=== PATIENT | male | born 1955 | race Caucasian/White ===

== ENCOUNTER 2016-08-20 12:37 | Emergency (ER) | payer OTHER ==
[2016-08-20] MEDS ORDERED: IBUPROFEN 600 MG TABLET (FP) PO ONE ×2 (12:50→13:06)
--- NOTE | 2016-08-20 12:51 | PDOC ---
[id number] CHEST PAIN Time Seen by Provider: 08/20/16 12:42 History Source: Patient Exam Limitations: No Limitations - History of Present Illness Initial Comments: 08/20/16 12:54 60-year-old male presents the ED with complaints of generalized chest pain with nonproductive cough since yesterday associated with pain worsened with deep inspiration and movement. patient describes the pain as an aching sensation that radiates to his upper abdominal region. Patient with history of pneumonia, back surgery, obesity, DVT, hypertension, dyslipidemia, BPH, depression, schizophrenia, diabetes and thyroid disease. Patient denies fever, chills, difficulty breathing, weakness, headache, sore throat, vomiting, or abdominal pain. Presenting Symptoms: Chest Pain Timing/Duration: reports: constant Severity/Quality: reports: aching Location: reports: substernal Chest Pain Radiation: reports: epigastric Activities at Onset: reports: none Modifying Factors: improves with: coughing Nitro Today/Relief: Yes: no nitro taken today Beta Juan F given by EMS (Core Measure): No Beta Juan F taken at Home (Core Measure): No Beta Juan F indicated at this time? (Core Measure): No Associated Symptoms: Yes: Cough, Chest Pain/pressure Past History - Past Medical History Allergies/Adverse Reactions: Allergies Allergy/AdvReac Type Severity Reaction Status Date / Time penicillamine Allergy Unknown Verified 08/20/16 12:43 Penicillins Allergy Unknown Verified 08/20/16 12:43 Home Medications: Ambulatory Orders Acetaminophen 650 mg PO Q6H PRN 08/20/16 Albuterol 2.5/Ipratropium 0.5 [Duoneb -] 1 neb IH QID 08/20/16 Apixaban [Eliquis] 5 mg PO BID 08/20/16 Aspirin [ASA -] 81 mg PO DAILY 08/20/16 Carbamazepine Xr [Tegretol Xr -] 200 mg PO BID 08/20/16 Clonazepam [Klonopin] 1 mg PO Q8H 08/20/16 Diphenhydramine HCl [Benadryl Capsule -] 50 mg PO BID PRN 08/20/16 Docusate Sodium [Colace -] 100 mg PO BID 08/20/16 Duloxetine HCl [Cymbalta] 60 mg PO DAILY 08/20/16 Empagliflozin [Jardiance] 25 mg PO DAILY 08/20/16 Fenofibrate 160 mg PO DAILY 08/20/16 Finasteride [Proscar] 5 mg PO DAILY 08/20/16 Fluticasone Propionate [24 Hour Allergy Relief] 15.8 ml NS BID 08/20/16 Gabapentin [Neurontin] 400 mg PO TID 08/20/16 Guaifenesin Dm [Robitussin Dm] 10 ml PO TID 08/20/16 Hydrocodone/Acetaminophen [Vicodin 5-300 mg Tablet] 1 each PO BID PRN 08/20/16 Hydrocortisone 2.5% Topical Cr [Anusol 2.5% Hc Cream -] 1 applic RC DAILY Hydrocortisone 2.5% Topical Cr [Anusol 2.5% Hc Cream -] 1 applic TP DAILY Hypromellose 0.5% Opth Soln [Artificial Tears] 1 drop OD QID 08/20/16 Insulin (Levemir) [Levemir Vial] 60 unit SQ DAILY 08/20/16 Insulin Lispro [Humalog] 6 unit SQ TID 08/20/16 Lactulose 10 gm PO DAILY 08/20/16 Latanoprost 0.005% Eye Drops [Xalatan 0.005% Eye Drops -] 1 drop OD HS 08/20/16 Levothyroxine [Synthroid -] 25 mcg PO DAILY 08/20/16 Lurasidone HCl [Latuda] 40 mg PO DAILY 08/20/16 Mag Hydrox/Al Hydrox/Simeth [Amparo-Lanta Liquid] 355 ml PO DAILY 08/20/16 Magnesium Hydrox 2400MG/30Ml [Milk of Magnesia -] 30 ml PO PRN PRN 08/20/16 Menthol [Icy Hot] 1 each TP Q12H 08/20/16 Metoprolol Succinate [Toprol Xl] 50 mg PO DAILY 08/20/16 Morphine *Sr* [Ms Contin -] 15 mg PO BID 08/20/16 Multivitamin [Poly-Vitamin] 1 each PO DAILY 08/20/16 Na Phos,M-B/Na Phos,Di-Ba [Fleet Enema] 133 ml RC PRN PRN 08/20/16 Nitroglycerin 0.4 mg SL PRN PRN 08/20/16 Nitroglycerin Patch [Nitro-Dur] 0.2 mg TD PRN PRN 08/20/16 Parab/Cet Alc/Stryl Alc/Pg/Sls [Cetaphil Gentle Skin Cleanser] 473 ml TP DAILY 08/20/16 Ranitidine [Zantac -] 150 mg PO DAILY 08/20/16 Salicylic Acid [Selsun Blue Naturals] 325 ml TP DAILY 08/20/16 Salmeterol/Fluticasone [Advair 100Mcg/50Mcg -] 1 inh PO BID 08/20/16 Sennosides [Senokot] 8.6 mg PO HS 08/20/16 Sodium Chloride [Saline Nasal Mist] 126 ml NS DAILY 08/20/16 Tamsulosin HCl [Flomax] 0.4 mg PO DAILY 08/20/16 Asthma: Yes Cancer: No Cardiac Disorders: Yes CHF: Yes Diabetes: Yes GI Disorders: Yes (constipation) Disorders: (INCONTINENT) HTN: Yes Hypercholesterolemia: Yes Liver Disease: No Psychiatric Problems: Yes (SCHIZOAFFECTIVE DISORDER,DEPRESSIVE DISRORDER) Suicide Attempt (Hx): No Thyroid Disease: Yes (Hypo) - Surgical History Abdominal Surgery: Yes (HERNIA REPAIR) GI Surgery: Yes (HERNIA REPAIR) Neurologic Surgery: Yes (HERNEATED DISC SURGERY RECENT) Orthopedic Surgery: Yes (Right foot hammer toe repair) - Immunization History Immunization Up to Date: Yes - Psycho/Social/Smoking Cessation Hx Anxiety: No Suicidal Ideation: No Smoking History: Never smoked Have you smoked in the past 12 months: No Number of Cigarettes Smoked Daily: 0 Hx Alcohol Use: No Drug/Substance Use Hx: No Substance Use Type: None Hx Substance Use Treatment: No Patient Lives Alone: No Lives with/in: shelter Review of Systems - Review of Systems Able to Perform ROS?: Yes Constitutional: No: Symptoms Reported HEENTM: No: Symptoms Reported Respiratory: Yes: Symptoms reported, Cough Cardiac (ROS): Yes: Symptoms Reported, Chest Pain ABD/GI: No: Symptoms Reported : No: Symptoms Reported Musculoskeletal: No: Symptoms Reported Integumentary: No: Symptoms Reported Neurological: No: Symptoms reported *Physical Exam - Vital Signs Last Vital Signs Temp Pulse Resp BP Pulse Ox 97.9 F 83 18 136/87 95 08/20/16 19:01 08/20/16 19:01 08/20/16 19:01 08/20/16 19:01 08/20/16 19:01 - Physical Exam General Appearance: Yes: Nourished, Appropriately Dressed. No: Apparent Distress HEENT: positive: EOMI, LETA, TMs Normal, Pharynx Normal (dry). negative: Pale Conjunctivae Neck: positive: Supple Respiratory/Chest: positive: Chest Tender (generalized anterior and bilateral oblique and epigastric tenderness), Lungs Clear, Normal Breath Sounds. negative : Respiratory Distress, Accessory Muscle Use Cardiovascular: positive: Regular Rhythm, Regular Rate. negative: Murmur Gastrointestinal/Abdominal: positive: Soft, Tenderness ( upper abdominal) Musculoskeletal: negative: CVA Tenderness Extremity: positive: Normal Capillary Refill, Pedal Edema (trace bilateral) Integumentary: positive: Normal Color, Warm, Moist Neurologic: positive: Motor Strength 5/5. negative: Normal Mood/Affect (flat affect, ), Sensory Deficit Heart Score/ECG Review - History History: Slightly suspicious - Electrocardiogram EKG: Normal - Age Age: 45-65 - Risk Factors Risk Factors Heart Score: Yes Hx Hypercholesterolemia, Yes Hx Hypertension, Yes Hx Obesity Based on the list above the patient has:: >/=3 risk factors or Hx atherosclerotic disease - Troponin Troponin: </= normal limit - Score Heart Score - Total: 3 - ECG Intrepretation Rhythm: Regular Rhythm (normal sinus rhythm at 64 with PAC) ED Treatment Course - LABORATORY CBC & Chemistry Diagram: 08/20/16 13:15 08/20/16 13:16 - ADDITIONAL ORDERS Additional order review: 08/20/16 13:16 Blood Culture - Preliminary Blood - Peripheral Venous NO GROWTH OBTAINED AFTER 72 HOURS, INCUBATION TO CONTINUE FOR 2 DAYS. 08/20/16 13:16 Blood Culture - Preliminary Blood - Peripheral Venous NO GROWTH OBTAINED AFTER 72 HOURS, INCUBATION TO CONTINUE FOR 2 DAYS. 08/20/16 13:15 RBC 4.68 MCV 85.7 MCHC 33.6 RDW 13.8 MPV 10.2 D Neutrophils % 74.6 D Lymphocytes % 16.0 D Monocytes % 7.7 Eosinophils % 1.2 D Basophils % 0.5 - RADIOLOGY Radiology Studies Ordered: Category Date Time Status CHEST X-RAY PORTABLE* [RAD] Stat Radiology 08/20/16 12:50 Completed - Medications Given in the ED: ED Medications Discontinued Medications Generic Name Dose Route Start Last Admin Trade Name Freq PRN Reason Stop Dose Admin Ibuprofen 600 mg 08/20/16 12:50 08/20/16 13:13 Motrin - PO 08/20/16 12:51 600 mg ONCE ONE Administration Medical Decision Making - Medical Decision Making 08/20/16 13:03 Patient will call for the past 2 days now associated with anterior chest pain which he describes an aching sensation worsened with movement and deep breathing. Patient has multiple comorbidities so will have cardiac workup along with chest x-ray to rule out pneumonia. 08/20/16 13:03 Patient currently on Eliquis secondary to DVT diagnosed last year. 08/20/16 13:16 08/20/16 13:55 Laboratory Tests 08/20/16 08/20/16 13:15 13:15 WBC 8.2 D Hgb 13.5 D Hct 40.1 D Plt Count 205 D INR Pending chest x-ray negative 08/20/16 14:21 Laboratory Tests 08/20/16 13:16 Sodium 139 Potassium 4.2 Chloride 102 Carbon Dioxide 24 Anion Gap 13 BUN 24 H Creatinine 1.2 D Creat Clearance w eGFR > 60 Random Glucose 136 H Calcium 9.6 Total Bilirubin 0.3 D AST 16 D ALT 25 D Alkaline Phosphatase 85 D Creatine Kinase 65 Troponin I < 0.02 Total Protein 6.9 Albumin 3.6 Lipase 151 08/20/16 14:21 Patient will have second troponin EKG done at 5 PM. If negative patient may return to shelter facility. Will contact Dr. Saida Ramirez/Elsy Mercado to update them on patient's ER visit 08/20/16 14:56 Laboratory Tests 08/20/16 13:16 Troponin I < 0.02 B-Natriuretic Peptide 81.51 08/20/16 15:[address] Mercado who states patient may return to shelter if troponin and EKG are negative. He states patient has had cardiac workups in the past recently. *DC/Admit/Observation/Transfer Diagnosis at time of Disposition: Chest pain - Discharge Dispostion Disposition: [facility] Condition at time of disposition: Stable - Referrals Referrals: Aaron Mercado MD [Primary Care Provider] - - Patient Instructions Printed Discharge Instructions: DI for Atypical Chest Pain Additional Instructions: Your Discharge Instructions: You must call primary care physician within 24 hours to arrange follow-up. Return to the Emergency Department with any new, persistent or worsening symptoms, for fever, chills, SOB, dizziness or any other concerning changes that may occur.
[2016-08-20 13:00] VITALS: BMI 38.6
[2016-08-20 13:28] LABS: BASOPHIL 0.5 % (0-2.0); EOSINOPHIL 1.2 % (0-4.5); MCH 28.8 pg (25.7-33.7); MCHC 33.6 g/dl (32.0-35.9); MEAN CELL VOLUME 85.7 fl (80-96); MEAN PLT VOLUME 10.2 fl (7.5-11.1); NEUTROPHILS 74.6 % (42.8-82.8); PLATELET COUNT 205 K/MM3 (134-434); RDW 13.8 % (11.9-15.9); WHITE BLOOD COUNT 8.2 K/mm3 (4.0-10.0)
[2016-08-20 14:02] LABS: INR 1.52 (0.82-1.09); PROTHROMBIN TIME (PATIENT) 16.9 SEC (9.98-11.88)
[2016-08-20 14:03] LABS: ALBUMIN 3.6 g/dl (3.4-5.0); ANION GAP 13 (8-16); BILIRUBIN,TOTAL 0.3 mg/dL (0.2-1.0); CALCIUM 9.6 mg/dL (8.5-10.1); CO2 24 mmol/L (21-32); COCKROFT - GAULT 92.13; CREATININE 1.2 mg/dL (0.7-1.3); GLUCOSE,RANDOM 136 mg/dL (74-106); SGOT/AST 16 U/L (15-37); SGPT/ALT 25 U/L (12-78); TOT PROT 6.9 g/dl (6.4-8.2)
[2016-08-20 14:06] LABS: ALK PHOS 85 U/L (45-117)
[2016-08-20 14:19] LABS: TROPONIN I < 0.02 ng/ml (0.00-0.05)
--- NOTE | 2016-08-20 17:37 | PDOC ---
*Physical Exam - Vital Signs Last Vital Signs Temp Pulse Resp BP Pulse Ox 98.3 F 66 18 147/88 96 08/20/16 12:41 08/20/16 13:16 08/20/16 12:41 08/20/16 12:41 08/20/16 13:16 ED Treatment Course - LABORATORY CBC & Chemistry Diagram: 08/20/16 13:15 08/20/16 13:16 - ADDITIONAL ORDERS Additional order review: Laboratory Results 08/20/16 08/20/16 13:16 13:15 INR 1.52 H D Sodium 139 Potassium 4.2 Chloride 102 Carbon Dioxide 24 Anion Gap 13 BUN 24 H Creatinine 1.2 D Creat Clearance w eGFR > 60 Random Glucose 136 H Calcium 9.6 Total Bilirubin 0.3 D AST 16 D ALT 25 D Alkaline Phosphatase 85 D Creatine Kinase 65 Troponin I < 0.02 B-Natriuretic Peptide 81.51 Total Protein 6.9 Albumin 3.6 Lipase 151 08/20/16 13:15 RBC 4.68 MCV 85.7 MCHC 33.6 RDW 13.8 MPV 10.2 D Neutrophils % 74.6 D Lymphocytes % 16.0 D Monocytes % 7.7 Eosinophils % 1.2 D Basophils % 0.5 - Medications Given in the ED: ED Medications Discontinued Medications Generic Name Dose Route Start Last Admin Trade Name Freq PRN Reason Stop Dose Admin Ibuprofen 600 mg 08/20/16 12:50 08/20/16 13:13 Motrin - PO 08/20/16 12:51 600 mg ONCE ONE Administration Medical Decision Making - Medical Decision Making 08/20/16 17:36 endorsed to follow repeat cardiac enzymes and disposition. 08/20/16 17:45 Patient seen and evaluated states he does not feel good. EKG NR rate 71, NAD, (-) ST-T wave changes unchanged from prior. PLAN is to return the patient to the [facility] if trop x 2 is neg as per signout and d/ w with the pmd. trop neg I discussed the physical exam findings, ancillary test results and final diagnoses with the patient. I answered all of the patient's questions. The patient was satisfied with the care received and felt comfortable with the discharge plan and treatment plan. The Patient agrees to follow up with the primary care physician within 24-[address] Beach about 08/20/16 19:03 *DC/Admit/Observation/Transfer Diagnosis at time of Disposition: Chest pain Qualifiers: Chest pain type: unspecified Qualified Code(s): R07.9 - Chest pain, unspecified - Discharge Dispostion Disposition: HOME Condition at time of disposition: Stable - Patient Instructions Printed Discharge Instructions: DI for Atypical Chest Pain Additional Instructions: Your Discharge Instructions: You must call primary care physician within 24 hours to arrange follow-up. Return to the Emergency Department with any new, persistent or worsening symptoms, for fever, chills, SOB, dizziness or any other concerning changes that may occur.
[2016-08-20 18:55] LABS: TROPONIN I < 0.02 ng/ml (0.00-0.05)
[2016-08-20 19:04] VITALS: BP 136/87; PULSE 83; TEMP 97.9
--- NOTE | 2016-08-21 08:59 | EKG ---
Test Reason : Blood Pressure : / mmHG Vent. Rate : 064 BPM Atrial Rate : 064 BPM P-R Int : 168 ms QRS Dur : 092 ms QT Int : 408 ms P-R-T Axes : 042 042 055 degrees QTc Int : 420 ms SINUS RHYTHM WITH PREMATURE ATRIAL COMPLEXES WITH ABERRANT CONDUCTION OTHERWISE NORMAL ECG WHEN COMPARED WITH ECG OF 06-DEC-2015 21:44, ABERRANT CONDUCTION IS NOW PRESENT Confirmed by RYAN OLIVER, NERY ([id number]) on 08/21/2016 8:59:23 AM Referred By: Confirmed By:NERY DAVIS MD
--- NOTE | 2016-08-21 09:08 | EKG ---
Test Reason : Blood Pressure : / mmHG Vent. Rate : 071 BPM Atrial Rate : 071 BPM P-R Int : 168 ms QRS Dur : 092 ms QT Int : 402 ms P-R-T Axes : 049 044 057 degrees QTc Int : 436 ms NORMAL SINUS RHYTHM NORMAL ECG WHEN COMPARED WITH ECG OF 20-AUG-2016 12:57, ABERRANT CONDUCTION IS NO LONGER PRESENT Confirmed by NERY DAVIS MD ([id number]) on 08/21/2016 9:08:14 AM Referred By: Confirmed By:NERY DAVIS MD
== END 2016-08-20 20:28 ==
LOC: JER 12:37
DX: R07.89 Other chest pain (principal); I10 Essential (primary) hypertension; E78.5 Hyperlipidemia, unspecified; F32.9 Major depressive disorder, single episode, unspecified; F20.89 Other schizophrenia; Z79.4 Long term (current) use of insulin; E03.9 Hypothyroidism, unspecified; J45.909 Unspecified asthma, uncomplicated; I50.9 Heart failure, unspecified; K59.09 Other constipation; Z86.718 Personal history of other venous thrombosis and embolism; Z79.01 Long term (current) use of anticoagulants
CPT/HCPCS: 36415; 71010-TC; 80053; 82550; 83690; 83880; 84484; 85025; 85610; 87040; 93005; 93010; 99285-25

== ENCOUNTER 2016-12-31 01:07 | Emergency (ER) | payer OTHER ==
--- NOTE | 2016-12-31 01:25 | PDOC ---
History of Present Illness - General History Source: Patient Exam Limitations: No Limitations <Monroe Cortez - Last Filed: 12/31/16 01:41> - General History Source: Patient Exam Limitations: No Limitations - History of Present Illness Beta Juan F given by EMS (Core Measure): No Beta Juan F taken at Home (Core Measure): No <Frances Guerrero I - Last Filed: 12/31/16 05:30> - General Stated Complaint: CHEST PAIN Time Seen by Provider: 12/31/16 01:19 - History of Present Illness Initial Comments: 12/31/16 01:38 HISTORY OF PRESENT ILLNESS The patient is a morbidly obese 61 year old male with a significant PMH of asthma, HTN, angina, and chronic back pain who presents to the emergency department with chest pain beginning approximately 2 days ago. The patient describes the chest pain as continuous with no radiation, and it is aggravated by movement or deep inspiration. The patient reports associated SOB with his symptoms. The patient notes that the chest pain is distinct from his angina pain in that it hurts more when he moves. The patient also reports 14 weeks of diffuse abdominal pain, which he saw his PCP for. However, he cannot remember the cause for the abdominal pain or what his PCPs course was. The patient denies headache and dizziness. Denies fever, chills, nausea, vomit, diarrhea and constipation. Denies dysuria, frequency, urgency and hematuria. PAST MEDICAL HISTORY: Asthma, HTN, Angina, Chronic back pain. PAST SURGICAL HISTORY: Recent herniated disc surgery. Abdominal hernia repair. Right foot hammer toe repair. FAMILY HISTORY: No pertinent history reported. SOCIAL HISTORY: Pt lives with family and is employed. MEDICATIONS: Reviewed. ALLERGIES: Penicillamine, Penicillins. As per nursing notes. REVIEW OF SYSTEMS General: No fevers or chills, no weakness, no weight loss HEENT: No change in vision. No sore throat,. No ear pain CardioVascular: (+) Chest pain. (+) Shortness of breath. Respiratory:No cough, or wheezing. Gastrointestinal: No nausea, vomiting, diarrhea or constipation, No rectal bleeding Genitourinary: No dysuria, hematuria, or frequency Musculoskeletal: No joint or muscle pain or swelling Neurologic: No headache, vertigo, dizziness or loss of consciousness Psychiatric: nor depression Skin: No rashes or easy bruising Endocrine: no increased thirst or abnormal weight change Allergic: no skin or latex allergy All other systems reviewed and normal PHYSICAL EXAM General: (+) Morbidly obese. Well-nourished well-developed individual, no acute distress HEENT: Throat: Normal, tonsils normal, no erythema or exudate Neck: Supple, no meningeal signs, no lymphadenopathy Eyes::Pupils equal reactive and round, extraocular motion intact Chest: Nontender to palpation Cardiac: S1-S2 normal, regular rate and rhythm, no murmurs rubs or gallops Respiratory: Lungs clear to auscultation bilateral Abdomen: (+) Protuberant abdomen. Soft, nondistended, normal bowel sounds, nontender to palpation diffusely Extremities: Warm, dry, no cyanosis, clubbing, or edema Skin: No rashes Neuro: Alert and oriented x3, nonfocal exam, grossly intact, normal gait Psych: Normal mood and affect (Monroe Cortez) 12/31/16 03:32 A portion of this note was documented by scribe services under my direction. I have reviewed the details of the note, within reason, and agree with the documentation. The case summary and management plan written by me. Chest x-ray reviewed by me no acute pathology, enlarged heart Flat and upright abdomen x-ray reviewed by me no acute intra-abdominal pathology Assessment and plan: This is a 58-year-old male who comes in complaining of pleuritic type chest pain or abdominal pain. Patient has a history of irritable bowel syndrome which most likely is the cause of his chronic abdominal pain patient said he has had 3 days of pleuritic type chest pain associated with some this patient had a mildly elevated dimer otherwise his chest x-ray showed no acute pathology. Patient had CT angiogram of the chest to rule out PE. CAT scan was negative for pulmonary embolus Patient's heart score was 3 Etiology for patient's pleuritic type chest pain could include viral etiology, pleuritis, costochondritis, or soreness of the chest wall. Patient's heart score is 3. likelihood of an acute coronary event within the next 3 months is approximately 1%. Patient discharged back to his living facility and will follow-up with the primary care doctor there. (Frances Guerrero I) Past History <Monroe Cortez - Last Filed: 12/31/16 01:41> - Past Medical History Asthma: Yes Cancer: No Cardiac Disorders: Yes CHF: Yes Diabetes: Yes GI Disorders: Yes (constipation) Disorders: (INCONTINENT) HTN: Yes Hypercholesterolemia: Yes Liver Disease: No Psychiatric Problems: Yes (SCHIZOAFFECTIVE DISORDER,DEPRESSIVE DISRORDER) Suicide Attempt (Hx): No Thyroid Disease: Yes (Hypo) - Surgical History Abdominal Surgery: Yes (HERNIA REPAIR) GI Surgery: Yes (HERNIA REPAIR) Neurologic Surgery: Yes (HERNEATED DISC SURGERY RECENT) Orthopedic Surgery: Yes (Right foot hammer toe repair) - Immunization History Immunization Up to Date: Yes - Psycho/Social/Smoking Cessation Hx Anxiety: No Suicidal Ideation: No Smoking History: Never smoked Have you smoked in the past 12 months: No Number of Cigarettes Smoked Daily: 0 Hx Alcohol Use: No Drug/Substance Use Hx: No Substance Use Type: None Hx Substance Use Treatment: No <Frances Guerrero I - Last Filed: 12/31/16 05:30> - Past Medical History Allergies/Adverse Reactions: Allergies Allergy/AdvReac Type Severity Reaction Status Date / Time penicillamine Allergy Unknown Verified 12/31/16 01:26 Penicillins Allergy Unknown Verified 12/31/16 01:26 Home Medications: Ambulatory Orders Acetaminophen 650 mg PO Q6H PRN 08/20/16 Albuterol 2.5/Ipratropium 0.5 [Duoneb -] 1 neb IH QID 08/20/16 Apixaban [Eliquis] 5 mg PO BID 08/20/16 Aspirin [ASA -] 81 mg PO DAILY 08/20/16 Carbamazepine Xr [Tegretol Xr -] 200 mg PO BID 08/20/16 Clonazepam [Klonopin] 1 mg PO Q8H 08/20/16 Diphenhydramine HCl [Benadryl Capsule -] 25 mg PO Q6H PRN 08/20/16 Docusate Sodium [Colace -] 100 mg PO BID 08/20/16 Duloxetine HCl [Cymbalta] 60 mg PO BID 08/20/16 Empagliflozin [Jardiance] 25 mg PO DAILY 08/20/16 Fenofibrate 160 mg PO DAILY 08/20/16 Finasteride [Proscar] 5 mg PO DAILY 08/20/16 Fluticasone Propionate [24 Hour Allergy Relief] 15.8 ml NS BID 08/20/16 Gabapentin [Neurontin] 400 mg PO TID 08/20/16 Guaifenesin Dm [Robitussin Dm] 10 ml PO TID 08/20/16 Hydrocodone/Acetaminophen [Vicodin 5-300 mg Tablet] 1 each PO BID PRN 08/20/16 Hydrocortisone 2.5% Topical Cr [Anusol 2.5% Hc Cream -] 1 applic RC DAILY Hydrocortisone 2.5% Topical Cr [Anusol 2.5% Hc Cream -] 1 applic TP DAILY Hypromellose 0.5% Opth Soln [Artificial Tears] 1 drop OD QID 08/20/16 Insulin (Levemir) [Levemir Vial] 60 unit SQ DAILY 08/20/16 Insulin Lispro [Humalog] 0 unit SQ TID 08/20/16 Lactulose 10 gm PO DAILY 08/20/16 Latanoprost 0.005% Eye Drops [Xalatan 0.005% Eye Drops -] 1 drop OD HS 08/20/16 Levothyroxine [Synthroid -] 25 mcg PO DAILY 08/20/16 Lurasidone HCl [Latuda] 40 mg PO DAILY 08/20/16 Mag Hydrox/Al Hydrox/Simeth [Amparo-Lanta Liquid] 355 ml PO DAILY 08/20/16 Magnesium Hydrox 2400MG/30Ml [Milk of Magnesia -] 30 ml PO PRN PRN 08/20/16 Menthol [Icy Hot] 1 each TP Q12H 08/20/16 Metoprolol Succinate [Toprol Xl] 50 mg PO DAILY 08/20/16 Morphine *Sr* [Ms Contin -] 15 mg PO BID 08/20/16 Multivitamin [Poly-Vitamin] 1 each PO DAILY 08/20/16 Na Phos,M-B/Na Phos,Di-Ba [Fleet Enema] 133 ml RC PRN PRN 08/20/16 Nitroglycerin 0.4 mg SL PRN PRN 08/20/16 Nitroglycerin Patch [Nitro-Dur] 0.2 mg TD PRN PRN 08/20/16 Parab/Cet Alc/Stryl Alc/Pg/Sls [Cetaphil Gentle Skin Cleanser] 473 ml TP DAILY 08/20/16 Ranitidine [Zantac -] 150 mg PO BID 08/20/16 Salicylic Acid [Selsun Blue Naturals] 325 ml TP DAILY 08/20/16 Salmeterol/Fluticasone [Advair 100Mcg/50Mcg -] 1 inh PO BID 08/20/16 Sennosides [Senokot] 8.6 mg PO HS 08/20/16 Sodium Chloride [Saline Nasal Mist] 126 ml NS DAILY 08/20/16 Tamsulosin HCl [Flomax] 0.8 mg PO DAILY 08/20/16 Metronidazole [Flagyl -] 250 mg PO TID 12/31/16 Sertraline HCl [Zoloft -] 50 mg PO DAILY 12/31/16 - Vital Signs Last Vital Signs Temp Pulse Resp BP Pulse Ox 98.2 F 63 19 116/81 98 12/31/16 01:27 12/31/16 01:27 12/31/16 01:27 12/31/16 01:27 12/31/16 01:27 Heart Score/ECG Review #1 ECG reviewed & interpreted by me at: 01:30 <Monroe Cortez - Last Filed: 12/31/16 01:41> - History History: Slightly suspicious - Electrocardiogram EKG: Normal - Age Age: 45-65 - Risk Factors Risk Factors Heart Score: Yes Hx Hypercholesterolemia, Yes Hx Hypertension, Yes Hx Obesity Based on the list above the patient has:: >/=3 risk factors or Hx atherosclerotic disease - Troponin Troponin: </= normal limit - Score Heart Score - Total: 3 <Frances Guerrero I - Last Filed: 12/31/16 05:30> #1 12/31/16 01:39 Vent rate 65 bpm HI interval 164 ms QRS duration 88 ms QT/QTc 392/407 ms P-R-T axes 56 48 49 Normal sinus rhythm. Normal ECG. (Monroe Cortez) ED Treatment Course - LABORATORY CBC & Chemistry Diagram: 12/31/16 02:15 12/31/16 02:15 <Frances Guerrero I - Last Filed: 12/31/16 05:30> - ADDITIONAL ORDERS Additional order review: Laboratory Results 12/31/16 12/31/16 12/31/16 02:15 02:15 02:15 D-Dimer 366 H Sodium 138 Potassium 4.3 Chloride 102 Carbon Dioxide 27 Anion Gap 9 BUN 24 H Creatinine 1.4 H Creat Clearance w eGFR 51.18 Random Glucose 147 H Calcium 9.7 Total Bilirubin 0.3 AST 16 ALT 21 Alkaline Phosphatase 80 Creatine Kinase 88 Troponin I < 0.02 Total Protein 6.7 Albumin 3.5 Lipase 155 12/31/16 02:15 RBC 4.56 MCV 87.3 MCHC 33.2 RDW 13.8 MPV 10.4 Neutrophils % 74.3 Lymphocytes % 15.5 Monocytes % 7.8 Eosinophils % 1.8 Basophils % 0.6 - RADIOLOGY Radiology Studies Ordered: Category Date Time Status CHEST CTA [CT] Stat CT Scan 12/31/16 03:31 Taken ABDOMEN FLAT & UPRIGHT [RAD] Stat Radiology 12/31/16 01:35 Taken CHEST X-RAY PORTABLE* [RAD] Stat Radiology 12/31/16 01:29 Taken - Medications Given in the ED: ED Medications Discontinued Medications Generic Name Dose Route Start Last Admin Trade Name Freq PRN Reason Stop Dose Admin Ketorolac Tromethamine 30 mg 12/31/16 03:00 12/31/16 03:22 Toradol Injection - IVPUSH 12/31/16 03:01 30 mg ONCE ONE Administration *DC/Admit/Observation/Transfer <Monroe Cortez - Last Filed: 12/31/16 01:41> - Discharge Dispostion Admit: No <Frances Guerrero I - Last Filed: 12/31/16 05:30> Diagnosis at time of Disposition: Irritable bowel syndrome, Atypical chest pain - Discharge Dispostion Disposition: HOME - Referrals Referrals: Aaron Mercado MD [Primary Care Provider] - - Patient Instructions Additional Instructions: Tylenol or Motrin as needed for pain. Return to the emergency department immediately with ANY new, persistent or worsening symptoms. Continue any medications as previously prescribed by your physician. You should follow up with your primary doctor as soon as possible regarding today's emergency department visit. . Please make sure your doctor reviews the results of your emergency evaluation. Thank you for coming to the Emergency Department today for your care. It was a pleasure to see you today. Please note that your evaluation is INCOMPLETE until you follow-up with your doctor. - Attestations Scribe Attestion: 12/31/16 01:39 Documentation prepared by Monroe Cortez, acting as medical referral coordinator for Frances Guerrero MD. (Monroe Cortez)
[2016-12-31 01:29] VITALS: TEMP 98.2; BMI 38.0
[2016-12-31 02:21] LABS: BASOPHIL 0.6 % (0-2.0); EOSINOPHIL 1.8 % (0-4.5); MCHC 33.2 g/dl (32.0-35.9); MEAN CELL VOLUME 87.3 fl (80-96); MEAN PLT VOLUME 10.4 fl (7.5-11.1); NEUTROPHILS 74.3 % (42.8-82.8); PLATELET COUNT 233 K/MM3 (134-434); RDW 13.8 % (11.9-15.9); WHITE BLOOD COUNT 8.4 K/mm3 (4.0-10.0)
[2016-12-31 02:45] LABS: ALBUMIN 3.5 g/dl (3.4-5.0); ANION GAP 9 (8-16); BILIRUBIN,TOTAL 0.3 mg/dL (0.2-1.0); CALCIUM 9.7 mg/dL (8.5-10.1); CO2 27 mmol/L (21-32); CREATININE 1.4 mg/dL (0.7-1.3); GLUCOSE,RANDOM 147 mg/dL (74-106); SGOT/AST 16 U/L (15-37); SGPT/ALT 21 U/L (12-78); TOT PROT 6.7 g/dl (6.4-8.2)
[2016-12-31 02:46] LABS: ALK PHOS 80 U/L (45-117)
[2016-12-31] MEDS ORDERED: KETOROLAC TROMETHAMINE 30 MG/1 ML VIAL IVPUSH ONE (03:00)
[2016-12-31] MEDS ORDERED: KETOROLAC TROMETHAMINE 30 MG/1 ML VIAL ONE (03:17)
[2016-12-31 03:23] LABS: CPK 88 IU/L (39-308); TROPONIN I < 0.02 ng/ml (0.00-0.05)
[2016-12-31] MEDS ORDERED: SODIUM CHLORIDE 1,000 ML IV ONE (03:35)
[2016-12-31 07:47] VITALS: BP 127/84
[2016-12-31 08:24] VITALS: PULSE 65
--- NOTE | 2017-01-01 16:35 | EKG ---
Test Reason : Blood Pressure : / mmHG Vent. Rate : 065 BPM Atrial Rate : 065 BPM P-R Int : 164 ms QRS Dur : 088 ms QT Int : 392 ms P-R-T Axes : 056 048 049 degrees QTc Int : 407 ms NORMAL SINUS RHYTHM NORMAL ECG WHEN COMPARED WITH ECG OF 20-AUG-2016 17:42, NO SIGNIFICANT CHANGE WAS FOUND Confirmed by JI MUELLER MD ([id number]) on 01/01/2017 4:34:58 PM Referred By: Confirmed By:JI MUELLER MD
== END 2016-12-31 08:23 ==
LOC: JER 01:07
PROC: 3E0337Z Introduction of Electrolytic and Water Balance Substance into Peripheral Vein, Percutaneous Approach (ICD-10-PCS; principal; 2016-12-31)
PROC: 3E0333Z Introduction of Anti-inflammatory into Peripheral Vein, Percutaneous Approach (ICD-10-PCS; 2016-12-31)
DX: R07.89 Other chest pain (principal); K58.9 Irritable bowel syndrome, unspecified; I25.119 Atherosclerotic heart disease of native coronary artery with unspecified angina pectoris; I11.0 Hypertensive heart disease with heart failure; E11.9 Type 2 diabetes mellitus without complications; Z79.4 Long term (current) use of insulin; E03.9 Hypothyroidism, unspecified; F25.9 Schizoaffective disorder, unspecified; F39 Unspecified mood [affective] disorder
CPT/HCPCS: 36415; 71010-TC; 71275-TC; 74020-TC; 80053; 83690; 84484; 85025; 85379; 93005; 93010; 96361; 96374; 99283-25

== ENCOUNTER 2023-06-21 17:26 | Inpatient (IN) | payer OTHER ==
[2023-06-21 21:25] LABS: VENOUS BASE EXCESS 1.8 mmol/L (-2-2); VENOUS O2 SATURATION 67.9 % (70-80); VENOUS PCO2 46.8 mmHg (38-52); VENOUS PH 7.385 (7.310-7.410)
[2023-06-21 21:28] LABS: BASO % 0.8 % (0-2.0); EOS % 3.1 % (0-4.5); HEMOGLOBIN 10.7 GM/dL (11.7-16.9); LYMPH % 16.8 % (8-40); MCH 29.5 pg (25.7-33.7); MCHC 33.4 g/dl (32.0-35.9); MEAN CELL VOLUME 88.4 fl (80-96); MEAN PLT VOLUME 8.7 fl (7.5-11.1); MONO % 10.6 % (3.8-10.2); NEUT % 68.7 % (42.8-82.8); PLATELET COUNT 244 10^3/uL (134-434); RBC 3.62 M/mm3 (4.00-5.60); RDW 16.4 % (11.9-15.9)
[2023-06-21 21:33] LABS: INR 1.31 (0.83-1.09); PROTHROMBIN TIME (PATIENT) 15.2 SEC (9.7-13.0)
[2023-06-21 21:36] LABS: ACTIVATED PTT 37.9 SECONDS (25.2-36.5)
[2023-06-21 21:43] LABS: POTASSIUM 4.3 mmol/L (3.5-5.1)
[2023-06-21 21:45] LABS: BLOOD UREA NITROGEN 29.3 mg/dL (7-18)
[2023-06-21 21:48] LABS: CREATININE 1.5 mg/dL (0.55-1.3)
[2023-06-21 21:50] LABS: BILIRUBIN,TOTAL 0.2 mg/dL (0.2-1); TOT PROT 6.6 g/dl (6.4-8.2)
[2023-06-21] MEDS ORDERED: ACETAMINOPHEN INJECTION 100 ML IVPB ONE (23:54)
[2023-06-22] MEDS: ACETAMINOPHEN 1000 MG/100 ML BAG IVPB ONE (00:01)
[2023-06-22 04:46] LABS: EPI CELLS 2 /uL (0-25.1); HYALINE CASTS 0 /uL (0-3.1); URINE APPEARANCE Error; URINE BACTERIA 11 /uL (0-1359); URINE BILIRUBIN NEGATIVE (NEGATIVE); URINE COLOR YELLOW; URINE GLUCOSE (UA) NEGATIVE (NEGATIVE); URINE KETONE NEGATIVE (NEGATIVE); URINE LEUK ESTERASE NEGATIVE (NEGATIVE); URINE NITRITE NEGATIVE (NEGATIVE); URINE PROTEIN 1+ (NEGATIVE); URINE RBC 6 /uL (0-23.9); URINE UROBILINOGEN 0.2 mg/dL (0.2-1.0); URINE WBC 9 /uL (0-25.8)
[2023-06-22] MEDS ORDERED: ALBUTEROL SO4 2.5/IPRATROPIUM 0.5 INH SOL 3 ML VIAL.NEB. NEB PRN (07:19)
[2023-06-22] MEDS ORDERED: TAMSULOSIN HCL 0.4 MG CAP ONE (09:23)
[2023-06-22] MEDS: LEVOTHYROXINE NA 25 MCG TABLET (FP) PO SCH (09:32)
[2023-06-22] MEDS: DIVALPROEX NA *ER* EXTEND REL 500 MG TABLET.SA (FP) PO ONE (09:32)
[2023-06-22] MEDS: BUDESONIDE/FORMETEROL FUMARATE 80/4.5 mcg INHALER IH SCH (09:32)
[2023-06-22] MEDS: TAMSULOSIN HCL 0.4 MG CAP PO SCH (09:32)
[2023-06-22] MEDS: SODIUM CHLORIDE 1,000 ML IV SCH (10:18)
[2023-06-22] MEDS: CHOLECALCIFEROL (VIT D3) 1,000 UNIT (25 MCG) TABLET PO SCH (11:00)
[2023-06-22] MEDS: ISOSORBIDE DINITRATE 20 MG TABLET PO SCH (11:00)
[2023-06-22] MEDS: ASCORBIC ACID 500 MG TABLET (FP) PO SCH (11:00)
[2023-06-22] MEDS: POLYETHYLENE GLYCOL (HEALTHYLAX) 3350 17 GM PACKET PO SCH (11:00)
[2023-06-22] MEDS: FAMOTIDINE 10 MG TABLET PO SCH (11:00)
[2023-06-22] MEDS: APIXABAN 5 MG TABLET PO SCH (11:00)
[2023-06-22] MEDS: METOPROLOL TARTRATE 25 MG TABLET (FP) PO SCH (11:00)
[2023-06-22] MEDS: GABAPENTIN 300 MG CAPSULE PO SCH (11:00)
[2023-06-22] MEDS: DULoxetine HCL 30 MG CAPSULE.DR PO SCH (11:00)
[2023-06-22] MEDS: hydrALAZINE HCL 25 MG TABLET (FP) PO SCH (11:00)
[2023-06-22] MEDS: OLANZapine 5 MG TABLET PO SCH ×2 (11:00→21:59)
[2023-06-22] MEDS: ESCITALOPRAM OXALATE 20 MG TABLET PO SCH (11:00)
[2023-06-22] MEDS: ASPIRIN 81 MG CHEWABLE TABLETS PO SCH (11:00)
[2023-06-22] MEDS: FUROSEMIDE 40 MG TABLET (FP) PO SCH (11:00)
[2023-06-22] MEDS: INSULIN ASPART SLIDING SCALE (NOVOLOG) 1 VIAL SQ SCH (12:40)
[2023-06-22] MEDS: busPIRone HCL 10 MG TABLET (FP) PO SCH (16:13)
[2023-06-22 16:57] VITALS: BMI 42.1
[2023-06-22] MEDS: ATORVASTATIN CA 80 MG TABLET (FP) PO SCH (21:56)
[2023-06-22] MEDS: SENNOSIDES 8.6MG TABLET (FP) PO SCH (21:59)
[2023-06-22] MEDS: DOCUSATE SODIUM 100 MG CAPSULE (FP) PO SCH (22:00)
[2023-06-22] MEDS: LATANOPROST 0.005% OPHTH SOLN 2.5ML BOTTLE OD SCH (22:20)
[2023-06-22] MEDS: CELECOXIB 200 MG CAPSULE PO SCH (22:20)
[2023-06-23] MEDS ORDERED: ESCITALOPRAM OXALATE 10 MG TABLET ONE (09:08)
[2023-06-23 09:31] LABS: BASO % 0.7 % (0-2.0); EOS % 3.7 % (0-4.5); HEMOGLOBIN 10.6 GM/dL (11.7-16.9); LYMPH % 17.8 % (8-40); MCH 29.4 pg (25.7-33.7); MCHC 33.2 g/dl (32.0-35.9); MEAN CELL VOLUME 88.3 fl (80-96); MEAN PLT VOLUME 10.2 fl (7.5-11.1); MONO % 9.9 % (3.8-10.2); NEUT % 67.9 % (42.8-82.8); PLATELET COUNT 232 10^3/uL (134-434); RBC 3.62 M/mm3 (4.00-5.60); RDW 16.3 % (11.9-15.9); WHITE BLOOD COUNT 6.1 K/mm3 (4.0-10.0)
[2023-06-23] MEDS: INSULIN (LEVEMIR) 100 UNITS/ML UNITS SQ SCH (09:38)
[2023-06-23] MEDS: ESCITALOPRAM OXALATE 10 MG TABLET PO SCH (09:41)
[2023-06-23 09:48] LABS: POTASSIUM 4.7 mmol/L (3.5-5.1)
[2023-06-23 10:01] LABS: BLOOD UREA NITROGEN 24.6 mg/dL (7-18)
[2023-06-23 10:05] LABS: CREATININE 1.4 mg/dL (0.55-1.3)
[2023-06-23 15:16] LABS: ERYTHROCYTE SEDIMENTATION RATE 51 mm/hr (0-20)
[2023-06-23] MEDS: OLANZapine 5 MG TABLET PO SCH (22:32)
[2023-06-24] MEDS ORDERED: INSULIN (NOVOLOG) ASPART 100 UNITS/ML 10ML VIAL ONE ×2 (07:45→21:16)
[2023-06-24] MEDS: HYDROCORTISONE 2.5% TOPICAL CREAM 30 GM TUBE TP SCH (14:52)
[2023-06-24] MEDS ORDERED: INSULIN (LEVEMIR) 100 UNITS/ML UNITS SQ ONE (19:25)
[2023-06-25] MEDS: PANTOPRAZOLE 20 MG TABLET PO SCH (09:37)
[2023-06-25 10:39] LABS: POTASSIUM 4.5 mmol/L (3.5-5.1)
[2023-06-25 10:41] LABS: CALCIUM 9.4 mg/dL (8.5-10.1)
[2023-06-25 10:42] LABS: ALBUMIN 2.8 g/dl (3.4-5.0); BLOOD UREA NITROGEN 23.7 mg/dL (7-18)
[2023-06-25 10:45] LABS: CREATININE 1.6 mg/dL (0.55-1.3)
[2023-06-25 10:46] LABS: BILIRUBIN,TOTAL 0.2 mg/dL (0.2-1); TOT PROT 6.2 g/dl (6.4-8.2)
[2023-06-25] MEDS ORDERED: INSULIN (NOVOLOG) ASPART 100 UNITS/ML 10ML VIAL ONE ×2 (11:24→17:00)
[2023-06-25] MEDS: POLYETHYLENE GLYCOL (HEALTHYLAX) 3350 17 GM PACKET PO SCH (13:21)
[2023-06-26 06:20] VITALS: BP 132/80; PULSE 66; RESP 20; TEMP 97.9
[2023-06-26] MEDS: Methylnaltrexone Bromide 12 MG/0.6 ML KIT SQ SCH (09:30)
== END 2023-06-26 09:47 | DRG 92 ==
LOC: JER 17:26 → JERBED 06-22 05:52 → INTOOBSV 06-22 05:52 → UNDOADMOB 06-22 05:52 → JERBED 06-22 07:03 → OBSVTOIN 06-22 08:25 → J8W 06-22 13:45
PROVIDERS: ADMIT Internal Medicine; ATTEND Internal Medicine
DX: G92.8 Other toxic encephalopathy (principal); Z68.41 Body mass index [BMI] 40.0-44.9, adult; R41.82 Altered mental status, unspecified; E03.9 Hypothyroidism, unspecified; F20.9 Schizophrenia, unspecified; E11.22 Type 2 diabetes mellitus with diabetic chronic kidney disease; E66.9 Obesity, unspecified; I12.9 Hypertensive chronic kidney disease with stage 1 through stage 4 chronic kidney disease, or unspecified chronic kidney disease; N18.9 Chronic kidney disease, unspecified; N40.0 Benign prostatic hyperplasia without lower urinary tract symptoms; T43.595A Adverse effect of other antipsychotics and neuroleptics, initial encounter; X58.XXXA Exposure to other specified factors, initial encounter; Y93.9 Activity, unspecified; Y92.9 Unspecified place or not applicable
CPT/HCPCS: 0241U-QW; 36415; 70450-TC; 71045-TC-FY; 74177-TC; 80048; 80053; 81003; 82550; 82607; 82803; 82962; 83605; 84443; 84484; 85025; 85610; 85651; 85730; 86140; 86780; 86850; 86900; 86901; 87040; 87081; 87086; 93005; 93010; 97116-GP; 97161-GP; 99285-25; G0378; J0131; Q9967

== ENCOUNTER 2024-01-22 21:11 | Emergency (ER) | payer OTHER ==
[2024-01-22 21:36] VITALS: BP 160/96; PULSE 89; RESP 13; TEMP 97; BMI 91.2
[2024-01-22] MEDS ORDERED: ACETAMINOPHEN INJECTION 100 ML ONE (21:59)
[2024-01-22 22:21] LABS: BASO % 0.4 % (0-2.0); EOS % 0.2 % (0-4.5); HEMATOCRIT 35.8 % (35.4-49); HEMOGLOBIN 11.8 GM/dL (11.7-16.9); LYMPH % 6.5 % (8-40); MCH 29.2 pg (25.7-33.7); MCHC 33.1 g/dl (32.0-35.9); MEAN CELL VOLUME 88.2 fl (80-96); MEAN PLT VOLUME 9.6 fl (7.5-11.1); MONO % 4.1 % (3.8-10.2); NEUT % 88.8 % (42.8-82.8); PLATELET COUNT 275 10^3/uL (134-434); RBC 4.06 M/mm3 (4.00-5.60); RDW 15.3 % (11.9-15.9); WHITE BLOOD COUNT 9.1 K/mm3 (4.0-10.0)
[2024-01-22 22:28] LABS: INR 1.17 (0.83-1.09); PROTHROMBIN TIME (PATIENT) 13.4 SEC (9.7-13.0)
[2024-01-22 22:29] LABS: VENOUS BASE EXCESS 1.3 mmol/L (-2-2); VENOUS O2 SATURATION 42.7 % (70-80); VENOUS PCO2 50.9 mmHg (38-52); VENOUS PH 7.352 (7.310-7.410)
[2024-01-22 22:31] LABS: ACTIVATED PTT 36.3 SECONDS (25.2-36.5)
[2024-01-22] MEDS: LACTATED RINGERS SOLUTION 1000 ML INFUS.BAG IV ONE (22:37)
[2024-01-22] MEDS: ACETAMINOPHEN 1000 MG/100 ML BAG IVPB ONE (22:37)
[2024-01-22 23:15] LABS: POTASSIUM 5.8 mmol/L (3.5-5.1)
[2024-01-22 23:17] LABS: ALBUMIN 3.4 g/dl (3.4-5.0); BLOOD UREA NITROGEN 17.3 mg/dL (7-18); CALCIUM 10.1 mg/dL (8.5-10.1)
[2024-01-22 23:20] LABS: CREATININE 1.6 mg/dL (0.55-1.3)
[2024-01-22 23:22] LABS: BILIRUBIN,TOTAL 0.4 mg/dL (0.2-1); MAGNESIUM 1.6 mg/dL (1.8-2.4); TOT PROT 7.4 g/dl (6.4-8.2)
[2024-01-23 02:32] LABS: EPI CELLS 11 /uL (0-25.1); HYALINE CASTS 1 /uL (0-3.1); PH,URINE 5.5 (5.0-8.0); URINE APPEARANCE CLEAR; URINE BACTERIA 9 /uL (0-1359); URINE BILIRUBIN NEGATIVE (NEGATIVE); URINE COLOR YELLOW; URINE GLUCOSE (UA) 3+ (NEGATIVE); URINE KETONE TRACE (NEGATIVE); URINE LEUK ESTERASE NEGATIVE (NEGATIVE); URINE NITRITE NEGATIVE (NEGATIVE); URINE PROTEIN 2+ (NEGATIVE); URINE RBC 5 /uL (0-23.9); URINE UROBILINOGEN 0.2 mg/dL (0.2-1.0); URINE WBC 5 /uL (0-25.8)
== END 2024-01-23 04:38 | disposition home or self-care (01) ==
LOC: JER 21:11
PROC: 3E033NZ Introduction of Analgesics, Hypnotics, Sedatives into Peripheral Vein, Percutaneous Approach (ICD-10-PCS; principal; 2024-01-22)
DX: E11.65 Type 2 diabetes mellitus with hyperglycemia (principal); R10.9 Unspecified abdominal pain; R30.0 Dysuria; R31.9 Hematuria, unspecified; W01.198A Fall on same level from slipping, tripping and stumbling with subsequent striking against other object, initial encounter
CPT/HCPCS: 36415; 70450-TC; 71045-TC-FY; 72125-TC; 80053; 81003; 82010; 82803; 82962; 83735; 85025; 85610; 85730; 86850; 86900; 86901; 87086; 93005; 93010; 93970-TC; 96374; 99285-25; J0131

== ENCOUNTER 2024-04-09 19:49 | Inpatient (IN) | payer OTHER ==
[2024-04-09 20:47] LABS: HEMOGLOBIN 11.5 GM/dL (11.7-16.9); MCH 29.2 pg (25.7-33.7); MCHC 32.8 g/dl (32.0-35.9); MEAN CELL VOLUME 88.9 fl (80-96); MEAN PLT VOLUME 9.5 fl (7.5-11.1); PLATELET COUNT 243 10^3/uL (134-434); RBC 3.93 M/mm3 (4.00-5.60); RDW 15.4 % (11.9-15.9); WHITE BLOOD COUNT 7.8 K/mm3 (4.0-10.0)
[2024-04-09 20:55] LABS: INR 1.22 (0.83-1.09); PROTHROMBIN TIME (PATIENT) 13.7 SEC (9.7-13.0)
[2024-04-09] MEDS: SODIUM CHLORIDE 0.9% 500 ML INFUS.BAG IV ONE ×2 (20:55→21:42)
[2024-04-09 20:58] LABS: VENOUS PCO2 44.3 mmHg (38-52); VENOUS PH 7.333 (7.310-7.410)
[2024-04-09 21:08] LABS: CHLORIDE 102 mmol/L (98-107); POTASSIUM 4.7 mmol/L (3.5-5.1); SODIUM 135 mmol/L (136-145)
[2024-04-09 21:11] LABS: ANION GAP 9 mmol/L (4-13); BLOOD UREA NITROGEN 24.2 mg/dL (7-18); CO2 24 mmol/L (21-32); MAGNESIUM 1.2 mg/dL (1.8-2.4)
[2024-04-09 21:13] LABS: ANISOCYTOSIS 0; MACROCYTOSIS 0
[2024-04-09 21:14] LABS: CREATININE 1.7 mg/dL (0.55-1.3); GLUCOSE,RANDOM 421 mg/dL (74-106); SGOT/AST 9 U/L (15-37); SGPT/ALT 13 U/L (13-61)
[2024-04-09 21:16] LABS: BILIRUBIN,TOTAL 0.4 mg/dL (0.2-1); TOT PROT 6.6 g/dl (6.4-8.2)
[2024-04-09 21:17] LABS: ALK PHOS 94 U/L (45-117)
[2024-04-09 21:20] LABS: EPI CELLS 5 /uL (0-25.1); HYALINE CASTS 0 /uL (0-3.1); URINE APPEARANCE CLEAR; URINE BACTERIA 17 /uL (0-1359); URINE BILIRUBIN NEGATIVE (NEGATIVE); URINE COLOR YELLOW; URINE GLUCOSE (UA) 3+ (NEGATIVE); URINE KETONE TRACE (NEGATIVE); URINE LEUK ESTERASE TRACE (NEGATIVE); URINE NITRITE NEGATIVE (NEGATIVE); URINE PROTEIN 2+ (NEGATIVE); URINE RBC 12 /uL (0-23.9); URINE UROBILINOGEN 0.2 mg/dL (0.2-1.0); URINE WBC 24 /uL (0-25.8)
[2024-04-09 21:47] LABS: LACTIC ACID 4.3 mmol/L (0.4-2.0)
[2024-04-09] MEDS ORDERED: MAGNESIUM SULFATE IN WATER 2 GM/50 ML IVPB IVPB ONE (22:56)
[2024-04-09] MEDS: MAGNESIUM SULFATE IN WATER 2 GM/50 ML IVPB IVPB ONE (23:10)
[2024-04-09 23:53] LABS: LACTIC ACID 3.1 mmol/L (0.4-2.0)
[2024-04-10 04:08] VITALS: BMI 41.1
[2024-04-10] MEDS ORDERED: ALBUTEROL SO4 2.5/IPRATROPIUM 0.5 INH SOL 3 ML VIAL.NEB. NEB PRN (04:48)
[2024-04-10] MEDS: HEPARIN NA (PORCINE) 5,000 UNITS/ML 1ML VIAL SQ SCH (07:11)
[2024-04-10] MEDS: INSULIN REGULAR HUMAN 100 UNITS/ML *VIAL IVPUSH ONE (07:12)
[2024-04-10] MEDS: INSULIN ASPART SLIDING SCALE (NOVOLOG) 1 VIAL SQ SCH (07:12)
[2024-04-10] MEDS: LEVOTHYROXINE NA 25 MCG TABLET (FP) PO SCH (07:13)
[2024-04-10] MEDS: SODIUM CHLORIDE 1,000 ML IV SCH (07:13)
[2024-04-10] MEDS: PANTOPRAZOLE SODIUM 40 MG VIAL IVPUSH SCH (07:13)
[2024-04-10 07:49] LABS: BASO % 0.7 % (0-2.0); EOS % 1.3 % (0-4.5); HEMATOCRIT 30.6 % (35.4-49); HEMOGLOBIN 10.1 GM/dL (11.7-16.9); LYMPH % 8.3 % (8-40); MCH 29.4 pg (25.7-33.7); MCHC 32.9 g/dl (32.0-35.9); MEAN CELL VOLUME 89.4 fl (80-96); MEAN PLT VOLUME 9.7 fl (7.5-11.1); MONO % 10.7 % (3.8-10.2); PLATELET COUNT 190 10^3/uL (134-434); RBC 3.42 M/mm3 (4.00-5.60); RDW 15.4 % (11.9-15.9); WHITE BLOOD COUNT 5.2 K/mm3 (4.0-10.0)
[2024-04-10 08:03] LABS: CALCIUM 8.2 mg/dL (8.5-10.1)
[2024-04-10 08:04] LABS: ALBUMIN 2.5 g/dl (3.4-5.0)
[2024-04-10 08:05] LABS: MAGNESIUM 1.5 mg/dL (1.8-2.4)
[2024-04-10 08:06] LABS: CREATININE 1.2 mg/dL (0.55-1.3)
[2024-04-10 08:07] LABS: BILIRUBIN,TOTAL 0.3 mg/dL (0.2-1)
[2024-04-10 08:08] LABS: POTASSIUM 4.2 mmol/L (3.5-5.1); TOT PROT 5.4 g/dl (6.4-8.2)
[2024-04-10 08:11] LABS: LACTIC ACID 3.2 mmol/L (0.4-2.0)
[2024-04-10] MEDS ORDERED: BUPIVACAINE HCL/PF 0.25% (2.5MG/ML) 10 ML VIAL ONE (09:03)
[2024-04-10] MEDS ORDERED: INDOCYANINE GREEN 25 MG/10 ML VIAL IVPUSH ONE (09:03)
[2024-04-10] MEDS ORDERED: NYSTATIN POWDER 100,000 UNITS/GM - 15 GM TOPICAL POWDER TP SCH (10:00)
[2024-04-10] MEDS ORDERED: NYSTATIN 100,000 UNIT/GM TOPICAL CREAM 15 GM TUBE TP SCH (10:00)
[2024-04-10] MEDS: TAMSULOSIN HCL 0.4 MG CAP PO SCH (10:06)
[2024-04-10] MEDS: OLANZapine 5 MG TABLET PO SCH ×2 (10:06→21:35)
[2024-04-10] MEDS: METOPROLOL TARTRATE 25 MG TABLET (FP) PO SCH (10:06)
[2024-04-10] MEDS: NYSTATIN POWDER 100,000 UNITS/GM - 15 GM TOPICAL POWDER TP SCH (10:06)
[2024-04-10] MEDS: INSULIN (LEVEMIR) 100 UNITS/ML UNITS SQ SCH (10:26)
[2024-04-10] MEDS: FLUTICASONE/UMECLIDIN/VILANTER(100-62.5-25 TRELEGY ELLIPTA) INAHLER IH SCH (10:27)
[2024-04-10] MEDS ORDERED: MAGNESIUM 2GM/50ML STERILE WATER IVPB IVPB ONE (15:48)
[2024-04-10 18:10] LABS: LACTIC ACID 2.8 mmol/L (0.4-2.0)
[2024-04-10] MEDS: POLYETHYLENE GLYCOL (HEALTHYLAX) 3350 17 GM PACKET PO SCH (18:30)
[2024-04-10] MEDS: NAPH,MB-DB/K PH,MBDB POWDER PACKET PO ONE ×2 (18:37→20:18)
[2024-04-10] MEDS: MAGNESIUM 2GM/50ML STERILE WATER IVPB IVPB ONE (20:18)
[2024-04-10] MEDS: SENNOSIDES 8.8 MG/5 ML SYRUP PO SCH (21:36)
[2024-04-10 22:01] LABS: POTASSIUM 4.3 mmol/L (3.5-5.1)
[2024-04-10 22:03] LABS: ALBUMIN 2.3 g/dl (3.4-5.0); BLOOD UREA NITROGEN 17.2 mg/dL (7-18); CALCIUM 8.5 mg/dL (8.5-10.1)
[2024-04-10] MEDS: LATANOPROST 0.005% OPHTH SOLN 2.5ML BOTTLE OD SCH (22:07)
[2024-04-10 22:08] LABS: BILIRUBIN,TOTAL 0.2 mg/dL (0.2-1); TOT PROT 5.1 g/dl (6.4-8.2)
[2024-04-11] MEDS: ACETAMINOPHEN 325 MG TABLET (FP) PO PRN (00:03)
[2024-04-11 08:39] LABS: PHOSPHOROUS 2.5 mg/dL (2.5-4.9)
[2024-04-11] MEDS: BISACODYL 10 MG SUPP.RECT PR ONE (11:42)
[2024-04-11 11:54] LABS: HEMOGLOBIN 10.2 GM/dL (11.7-16.9); MCH 29.2 pg (25.7-33.7); MCHC 32.8 g/dl (32.0-35.9); MEAN CELL VOLUME 89.2 fl (80-96); MEAN PLT VOLUME 9.6 fl (7.5-11.1); PLATELET COUNT 186 10^3/uL (134-434); RBC 3.47 M/mm3 (4.00-5.60); RDW 15.6 % (11.9-15.9); WHITE BLOOD COUNT 4.9 K/mm3 (4.0-10.0)
[2024-04-12 09:09] LABS: BASO % 0.3 % (0-2.0); HEMATOCRIT 31.4 % (35.4-49); HEMOGLOBIN 10.2 GM/dL (11.7-16.9); LYMPH % 13.7 % (8-40); MCH 29.1 pg (25.7-33.7); MCHC 32.4 g/dl (32.0-35.9); MEAN CELL VOLUME 89.7 fl (80-96); MEAN PLT VOLUME 9.3 fl (7.5-11.1); MONO % 12.8 % (3.8-10.2); NEUT % 70.2 % (42.8-82.8); PLATELET COUNT 215 10^3/uL (134-434); RBC 3.51 M/mm3 (4.00-5.60); RDW 15.3 % (11.9-15.9); WHITE BLOOD COUNT 4.8 K/mm3 (4.0-10.0)
[2024-04-12 09:21] LABS: POTASSIUM 4.4 mmol/L (3.5-5.1)
[2024-04-12 09:23] LABS: BLOOD UREA NITROGEN 13.7 mg/dL (7-18); CALCIUM 9.3 mg/dL (8.5-10.1); MAGNESIUM 1.7 mg/dL (1.8-2.4)
[2024-04-12 09:26] LABS: ALBUMIN 2.6 g/dl (3.4-5.0); CREATININE 1.2 mg/dL (0.55-1.3)
[2024-04-12 09:27] LABS: PHOSPHOROUS 2.5 mg/dL (2.5-4.9)
[2024-04-12 09:28] LABS: BILIRUBIN,TOTAL 0.4 mg/dL (0.2-1); TOT PROT 5.7 g/dl (6.4-8.2)
[2024-04-12] MEDS ORDERED: DIVALPROEX 500 MG PO SCH (11:30)
[2024-04-12] MEDS: DIVALPROEX NA *ER* EXTEND REL 500 MG TABLET.SA (FP) PO SCH (12:10)
[2024-04-12] MEDS: MAGNESIUM OXIDE 400 MG TABLET (FP) PO ONE (13:25)
[2024-04-12] MEDS: DABIGATRAN ETEXILATE MESYLATE 150 MG CAPSULE PO SCH (22:30)
[2024-04-13 10:36] VITALS: RESP 18
[2024-04-14 10:01] VITALS: BP 147/92; PULSE 78; TEMP 97.3
[2024-04-14] MEDS: PANTOPRAZOLE 40 MG TABLET PO ONE (11:20)
== END 2024-04-14 13:33 | DRG 389 ==
LOC: JER 19:49 → JERBED 04-10 00:29 → J4W 04-10 03:22 → OBSVTOIN 04-10 13:25
PROVIDERS: ADMIT Internal Medicine; ATTEND Student in an Organized Health Care Education/Training Program
DX: K56.7 Ileus, unspecified (principal); E87.20 Acidosis, unspecified; N17.9 Acute kidney failure, unspecified; R33.9 Retention of urine, unspecified; I48.91 Unspecified atrial fibrillation; I25.10 Atherosclerotic heart disease of native coronary artery without angina pectoris; F25.9 Schizoaffective disorder, unspecified; K59.00 Constipation, unspecified; E11.9 Type 2 diabetes mellitus without complications; E83.42 Hypomagnesemia; E83.39 Other disorders of phosphorus metabolism; E03.9 Hypothyroidism, unspecified; N40.1 Benign prostatic hyperplasia with lower urinary tract symptoms
CPT/HCPCS: 0241U-QW; 36415; 71045-TC-FY; 71275-TC; 74174-TC; 74176-TC; 80053; 81003; 82550; 82803; 82962; 83036; 83605; 83735; 83880; 84100; 84439; 84443; 84484; 85025; 85027; 85610; 85651; 85730; 86140; 86850; 86900; 86901; 87040; 87077; 87086; 93005; 93010; 99291; G0378; J1644; Q9967

== ENCOUNTER 2024-12-12 12:32 | Inpatient (IN) | payer OTHER ==
[2024-12-12 13:53] LABS: ABSOLUTE IMMATURE GRANULOCYTES 0.04 x10^3/uL (0.0-0.031); BASOPHILS # 0.03 x10^3/uL (0.01-0.08); EOSINOPHIL % 4.4 % (0.8-7.0); EOSINOPHILS # 0.28 x10^3/uL (0.04-0.54); MCHC 31.4 g/dl (32.3-36.5); MEAN CELL VOLUME 94.6 fl (79.0-92.2); MEAN PLT VOLUME 10.9 fl (9.4-12.4); MONOCYTE # 0.58 x10^3/uL (0.30-0.82); MONOCYTE % 9.0 % (5.3-12.2); RDW 14.7 % (12.2-16.4)
[2024-12-12 14:47] LABS: GLUCOSE,RANDOM 263.0 mg/dL (74-106)
[2024-12-12 14:48] LABS: TOT PROT 6.9 g/dl (6.4-8.2)
[2024-12-12 14:49] LABS: CO2 25.0 mmol/L (21-32)
[2024-12-12 14:50] LABS: ALK PHOS 99.0 U/L (40-150)
[2024-12-12 14:53] LABS: CREATININE 1.38 mg/dL (0.55-1.3); SGOT/AST 18.0 U/L (5-34); SGPT/ALT 16.0 U/L (0-55)
[2024-12-12 15:02] LABS: N-TERMINAL BNP 98.3 pg/mL (0-299.9)
[2024-12-12 15:15] LABS: HCV DIAGNOSTIC IN-HOUSE W/RFLX NON-REACTIVE (NONREACTIVE); HIV INTERPRETATION NEGATIVE (NEGATIVE)
[2024-12-12] MEDS ORDERED: CEFEPIME HCL/D5W 1 GM/50 ML BAG IVPB ONE (15:42)
[2024-12-12] MEDS ORDERED: VANCOMYCIN 1 GM PREMIX (F) 1 GM/200 ML BAG ONE (15:43)
[2024-12-12] MEDS: CEFEPIME HCL 1 GM VIAL (RESTRICTED TO ID) IVPB ONE (15:48)
[2024-12-12 15:50] LABS: URINE APPEARANCE CLEAR; URINE BILIRUBIN NEGATIVE (NEGATIVE); URINE COLOR YELLOW; URINE GLUCOSE (UA) 3+ (NEGATIVE); URINE KETONE NEGATIVE (NEGATIVE); URINE LEUK ESTERASE NEGATIVE (NEGATIVE); URINE NITRITE NEGATIVE (NEGATIVE); URINE PROTEIN NEGATIVE (NEGATIVE); URINE UROBILINOGEN 0.2 mg/dL (0.2-1.0)
[2024-12-12] MEDS: VANCOMYCIN 1,000 MG in DEXTROSE 5%-WATER - 250 ML IVPB ONE (16:07)
[2024-12-12] MEDS ORDERED: ALBUTEROL SO4 0.083% IH SOL 2.5 MG/3 ML VIAL.NEB. NEB PRN ×2 (16:10→17:35)
[2024-12-12] MEDS ORDERED: MAG HYDROX/AL HYDROX/SIMETH 30 ML UNIT-DOSE CUP PO PRN (16:10)
[2024-12-12] MEDS ORDERED: CEFEPIME HCL 2 GM VIAL (RESTRICTED TO ID) IVPB SCH (16:30)
[2024-12-12] MEDS: ACETAMINOPHEN 1000 MG/100 ML BAG IVPB ONE (17:10)
[2024-12-12] MEDS ORDERED: ACETAMINOPHEN INJECTION 100 ML ONE (17:12)
[2024-12-12] MEDS: INSULIN (NOVOLOG) ASPART 100 UNITS/ML 10ML VIAL SQ SCH (18:23)
[2024-12-12] MEDS ORDERED: INSULIN ASPART SLIDING SCALE (NOVOLOG) 1 VIAL SQ ONE (18:25)
[2024-12-12] MEDS: CEFEPIME 2 GM in DEXTROSE 5%-WATER 100 ML IVPB SCH (20:14)
[2024-12-12 20:32] VITALS: BMI 42.6
[2024-12-12] MEDS: METOPROLOL TARTRATE 25 MG TABLET (FP) PO SCH (22:28)
[2024-12-12] MEDS: ATORVASTATIN CA 80 MG TABLET (FP) PO SCH (22:28)
[2024-12-12] MEDS: GABAPENTIN 300 MG CAPSULE PO SCH (22:28)
[2024-12-12] MEDS: POLYETHYLENE GLYCOL (HEALTHYLAX) 3350 17 GM PACKET PO SCH (22:29)
[2024-12-12] MEDS: SENNOSIDES 8.8 MG/5 ML SYRUP PO SCH (22:29)
[2024-12-12] MEDS: INSULIN GLARGINE (LANTUS) 100 UNITS/ML UNITS SQ SCH (22:29)
[2024-12-12] MEDS ORDERED: ISOSORBIDE DINITRATE 20 MG TABLET PO SCH (23:30)
[2024-12-12] MEDS: ISOSORBIDE DINITRATE 20 MG TABLET PO SCH (23:40)
[2024-12-12] MEDS: LATANOPROST 0.005% OPHTH SOLN 2.5ML BOTTLE OD SCH (23:40)
[2024-12-12] MEDS: DABIGATRAN ETEXILATE MESYLATE 150 MG CAPSULE PO SCH (23:40)
[2024-12-13] MEDS: ISOSORBIDE DINITRATE 20 MG TABLET PO SCH (04:38)
[2024-12-13] MEDS: metFORMIN HCL 500 MG TABLET (FP) PO SCH (06:18)
[2024-12-13] MEDS: LEVOTHYROXINE NA 25 MCG TABLET (FP) PO SCH (06:18)
[2024-12-13] MEDS: TAMSULOSIN HCL 0.4 MG CAP PO SCH (09:53)
[2024-12-13] MEDS: FUROSEMIDE 40 MG TABLET (FP) PO SCH (09:53)
[2024-12-13] MEDS: hydrALAZINE HCL 25 MG TABLET (FP) PO SCH (09:53)
[2024-12-13] MEDS: ASPIRIN 81 MG CHEWABLE TABLETS PO SCH (09:54)
[2024-12-13] MEDS: ASCORBIC ACID 250 MG TABLET (FP) PO SCH (09:54)
[2024-12-13] MEDS: ESCITALOPRAM OXALATE 20 MG TABLET PO SCH (09:54)
[2024-12-13] MEDS: FAMOTIDINE 20 MG TABLET PO SCH (09:54)
[2024-12-13] MEDS: DIVALPROEX NA *ER* EXTEND REL 500 MG TABLET.SA (FP) PO SCH (09:55)
[2024-12-13] MEDS: FLUTICASONE/UMECLIDIN/VILANTER(100-62.5-25 TRELEGY ELLIPTA) INAHLER IH SCH (09:56)
[2024-12-13] MEDS: CHOLECALCIFEROL (VIT D3) 1,000 UNIT (25 MCG) TABLET PO SCH (09:56)
[2024-12-13] MEDS: BISACODYL 5 MG TABLET.DR (FP) PO SCH (09:57)
[2024-12-13] MEDS ORDERED: INSULIN ASPART SLIDING SCALE (NOVOLOG) 1 VIAL SQ ONE (16:57)
[2024-12-13] MEDS: ACETAMINOPHEN 325 MG TABLET (FP) PO PRN (17:03)
[2024-12-13] MEDS: INSULIN ASPART SLIDING SCALE (NOVOLOG) 1 VIAL SQ SCH (21:57)
[2024-12-13] MEDS: ACETAMINOPHEN 1000 MG/100 ML BAG IVPB ONE (22:39)
[2024-12-15 08:14] LABS: ABSOLUTE IMMATURE GRANULOCYTES 0.06 x10^3/uL (0.0-0.031); BASOPHILS # 0.05 x10^3/uL (0.01-0.08); EOSINOPHIL % 5.4 % (0.8-7.0); EOSINOPHILS # 0.42 x10^3/uL (0.04-0.54); MCHC 31.2 g/dl (32.3-36.5); MEAN CELL VOLUME 95.2 fl (79.0-92.2); MEAN PLT VOLUME 11.0 fl (9.4-12.4); MONOCYTE # 0.80 x10^3/uL (0.30-0.82); MONOCYTE % 10.3 % (5.3-12.2); RDW 14.5 % (12.2-16.4)
[2024-12-15 09:09] LABS: GLUCOSE,RANDOM 142.0 mg/dL (74-106)
[2024-12-15 09:10] LABS: TOT PROT 6.3 g/dl (6.4-8.2)
[2024-12-15 09:11] LABS: CO2 25.0 mmol/L (21-32)
[2024-12-15 09:12] LABS: ALK PHOS 83.0 U/L (40-150)
[2024-12-15 09:15] LABS: CREATININE 1.63 mg/dL (0.55-1.3); SGOT/AST 18.0 U/L (5-34); SGPT/ALT 12.0 U/L (0-55)
[2024-12-15] MEDS: CEFEPIME 2 GM in DEXTROSE 5%-WATER 100 ML IVPB SCH (13:31)
[2024-12-16] MEDS ORDERED: CEFEPIME HCL 1 GM VIAL (RESTRICTED TO ID) IVPB SCH (13:00)
[2024-12-16] MEDS: CEFEPIME 1 GM in DEXTROSE 5%-WATER 100 ML IVPB SCH (18:42)
[2024-12-17 08:34] LABS: ABSOLUTE IMMATURE GRANULOCYTES 0.09 x10^3/uL (0.0-0.031); BASOPHILS # 0.06 x10^3/uL (0.01-0.08); EOSINOPHIL % 4.4 % (0.8-7.0); EOSINOPHILS # 0.39 x10^3/uL (0.04-0.54); MCHC 31.7 g/dl (32.3-36.5); MEAN CELL VOLUME 94.7 fl (79.0-92.2); MEAN PLT VOLUME 10.9 fl (9.4-12.4); MONOCYTE # 0.82 x10^3/uL (0.30-0.82); MONOCYTE % 9.3 % (5.3-12.2); RDW 14.6 % (12.2-16.4)
[2024-12-17 09:14] LABS: GLUCOSE,RANDOM 174.0 mg/dL (74-106)
[2024-12-17 09:15] LABS: CO2 20.0 mmol/L (21-32)
[2024-12-17 09:19] LABS: CREATININE 1.62 mg/dL (0.55-1.3)
[2024-12-17 22:41] VITALS: BP 125/75; PULSE 84; RESP 17; TEMP 98.4
== END 2024-12-17 21:58 | DRG 190 ==
LOC: JER 12:32 → JERBED 16:04 → J8W 18:27
PROVIDERS: ADMIT Internal Medicine; ATTEND Internal Medicine
DX: J44.0 Chronic obstructive pulmonary disease with (acute) lower respiratory infection (principal); J18.9 Pneumonia, unspecified organism; Z68.41 Body mass index [BMI] 40.0-44.9, adult; E11.9 Type 2 diabetes mellitus without complications; I10 Essential (primary) hypertension; N40.0 Benign prostatic hyperplasia without lower urinary tract symptoms; I87.2 Venous insufficiency (chronic) (peripheral); E66.9 Obesity, unspecified
CPT/HCPCS: 36415; 70450-TC; 71045-TC-FY; 72125-TC; 72131-TC; 80048; 80053; 81003; 82962; 83880; 84484; 85025; 86803; 87086; 87389; 87637-QW; 87899; 93005; 93010; 99285-25